=== PATIENT | female | born 1990 | race Caucasian/White ===

== ENCOUNTER → 2021-05-31 10:56 | Outpatient (BNVA) | payer OTHER, SELFPAY | PROVIDERS: PCP Internal Medicine; Visit Provider Psychiatry & Neurology Neurology | DX: G44.329 Chronic post-traumatic headache, not intractable (principal); G47.9 Sleep disorder, unspecified; M54.2 Cervicalgia | CPT/HCPCS: 99202 ==

== ENCOUNTER → 2021-07-10 10:16 | Outpatient (BNVA) | payer OTHER, SELFPAY | PROVIDERS: PCP Internal Medicine; Visit Provider Nurse Practitioner Family | DX: G44.329 Chronic post-traumatic headache, not intractable (principal); G47.9 Sleep disorder, unspecified; G93.0 Cerebral cysts; M54.2 Cervicalgia | CPT/HCPCS: 99212 ==

== ENCOUNTER → 2021-09-13 10:02 | Outpatient (BNVA) | payer OTHER, SELFPAY | PROVIDERS: PCP Internal Medicine; Visit Provider Nurse Practitioner Family | DX: G47.9 Sleep disorder, unspecified (principal); G93.0 Cerebral cysts; G44.329 Chronic post-traumatic headache, not intractable; M54.2 Cervicalgia | CPT/HCPCS: 99212 ==

== ENCOUNTER → 2022-01-03 09:52 | Outpatient (BNVA) | payer OTHER, SELFPAY | PROVIDERS: PCP Internal Medicine; Visit Provider Nurse Practitioner Family | DX: S06.0XAD Concussion with loss of consciousness status unknown, subsequent encounter (principal); G93.0 Cerebral cysts; F41.9 Anxiety disorder, unspecified; M79.7 Fibromyalgia; G47.9 Sleep disorder, unspecified; G44.329 Chronic post-traumatic headache, not intractable; M54.2 Cervicalgia | CPT/HCPCS: 99212 ==

== ENCOUNTER 2022-02-15 10:47 | Outpatient (REF) | payer OTHER, SELFPAY ==
--- NOTE | ~2022-02-15 | CT_ITS ---
EXAMINATION: CT HEAD WITHOUT CONTRAST CLINICAL INFORMATION: Concussion with loss of consciousness. COMPARISON: None TECHNIQUE: Contiguous axial imaging was performed from the skull base to vertex without intravenous administration of contrast. This CT examination was performed using dose optimization techniques as appropriate, variously including the following: *Automated exposure control *Adjustment of mA and/or kV according to patient size (this includes techniques or standardized protocols for targeted exams where dose is matched to indication/reason for exam; i.e. extremities or head) *Use of iterative reconstruction technique DLP: 649 mGy-cm FINDINGS: There is no acute intra-axial, extra-axial bleed, mass or midline shift. There is no acute infarction in evolution. The lateral ventricles are symmetrical in size and configuration without enlargement. The garcia to white matter differentiation is maintained normal. Bone windows reveal no calvarial abnormality. There is no scalp soft tissue abnormality. Bilateral paranasal sinuses and mastoid air cells are well aerated. CT/CT head/brain wo IV con IMPRESSION: No acute intracranial process is seen.
== END 2022-02-15 10:48 | disposition home or self-care (01) ==
LOC: HO.CT 10:47
PROVIDERS: PCP Internal Medicine; Visit Provider Nurse Practitioner Family
DX: G93.0 Cerebral cysts (principal); S06.0XAA Concussion with loss of consciousness status unknown, initial encounter
CPT/HCPCS: 70450

== ENCOUNTER → 2022-03-16 10:59 | Outpatient (BNVA) | payer OTHER, SELFPAY | PROVIDERS: PCP Internal Medicine; Visit Provider Nurse Practitioner Family | DX: G47.9 Sleep disorder, unspecified (principal); G44.329 Chronic post-traumatic headache, not intractable | CPT/HCPCS: 99212 ==

== ENCOUNTER → 2022-07-19 10:57 | Outpatient (BNVA) | payer OTHER, SELFPAY | PROVIDERS: PCP Internal Medicine; Visit Provider Nurse Practitioner Family | DX: S06.0X0A Concussion without loss of consciousness, initial encounter (principal); G44.329 Chronic post-traumatic headache, not intractable; G93.0 Cerebral cysts; G47.9 Sleep disorder, unspecified; M54.2 Cervicalgia; R40.0 Somnolence; R42 Dizziness and giddiness; Z79.899 Other long term (current) drug therapy | CPT/HCPCS: 99212 ==

== ENCOUNTER → 2022-09-18 09:04 | Outpatient (REF) | payer OTHER, SELFPAY | LOC: HO.SL 09:04 | PROVIDERS: PCP Internal Medicine; Visit Provider Nurse Practitioner Family | DX: G47.9 Sleep disorder, unspecified (principal); R40.0 Somnolence; R06.83 Snoring | CPT/HCPCS: 95806 ==

== ENCOUNTER → 2022-09-18 09:32 | Outpatient (BNV) | payer OTHER, SELFPAY | PROVIDERS: PCP Internal Medicine; Visit Provider Psychiatry & Neurology Neurology | DX: R06.83 Snoring (principal) | CPT/HCPCS: 95806 ==

== ENCOUNTER 2022-09-19 20:47 | Emergency (ER) | payer OTHER, SELFPAY ==
--- NOTE | ~2022-09-19 | XR_ITS ---
EXAMINATION: XR ANKLE, LEFT CLINICAL INFORMATION: Pain COMPARISON: None available. TECHNIQUE: AP, lateral, and mortise views of the left ankle. FINDINGS: Osseous alignment is anatomic. No acute fracture is seen. Small chronic appearing calcification is noted adjacent to the anterior talus on the lateral view. There is soft tissue swelling which is most significant laterally. XR/XR ankle LT 2V IMPRESSION: No acute fracture identified. Soft tissue swelling.
[2022-09-19 20:52] VITALS: BP 131/74; PULSE 101; RESP 18; TEMP 36.5; O2SAT 100; BMI 25.6
[2022-09-20] MEDS: Acetaminophen 325 MG TABLET 975 MG PO (00:53)
--- NOTE | 2022-09-20 01:09 | ED_ITS ---
HPI - General Adult General Chief complaint: Extremity Problem Stated complaint: L ankle/ foot pain. cant feel foot Time Seen by Provider: 09/20/22 00:24 Source: patient, RN notes reviewed and old records reviewed Mode of arrival: ambulatory Limitations: no limitations History of Present Illness HPI narrative: 32-year-old female presents for evaluation of left ankle pain Patient reports that she woke up with left ankle pain 3 days ago Denies any injury to the area The pain was initially mild and did not radiate Now the pain radiates to her foot and upper left leg Denies any fevers or chills Denies any history of diabetes Denies any history of gout She drinks approximately 2 beers daily but notes that she does not necessarily drink every day Related Data Home Medications Medication Instructions Recorded Confirmed acetaminophen 500 mg-pamabrom 25 1 tab PO Q12H PRN 05/31/21 09/13/21 mg-pyrilamine 15 mg tablet cyclobenzaprine 10 mg tablet 10 mg PO Q8H PRN muscle spasm 05/31/21 09/13/21 naproxen 500 mg tablet 500 mg PO BID PRN pain 05/31/21 09/13/21 medroxyprogesterone 150 mg/mL 150 mg IM [id number] 07/19/22 intramuscular suspension Previous Rx's Medication Instructions Recorded amitriptyline 25 mg tablet 25 mg PO BEDTIME 30 days #30 tabs 07/19/22 magnesium oxide 400 mg PO DAILY 30 days #30 tabs 07/19/22 riboflavin (vitamin B2) 400 mg 400 mg PO DAILY 30 days #30 tabs 07/19/22 tablet colchicine 0.6 mg tablet 0.6 mg PO DAILY #7 tabs 09/20/22 doxycycline hyclate 100 mg tablet 100 mg PO BID #14 tabs 09/20/22 prednisone 20 mg tablet 40 mg PO DAILY #10 tabs 09/20/22 Allergies Allergy/AdvReac Type Severity Reaction Status Date / Time Penicillins [PENICILLINS] Allergy Unknown ANAPHYLAXIS Verified 07/19/22 11:08 Review of Systems Constitutional: Constitutional: Denies chills and Denies fever(s) Musculoskeletal: Musculoskeletal: Reports arthralgias, Reports joint swelling and Reports limited range of motion Integumentary/Breasts: Skin/Breast: Reports erythema PMFSH Past Medical History Medical History Anxiety Arachnoid cyst Cervicalgia Concussion Fibromyalgia Surgical History History of placement of ear tubes Hx of ovarian cystectomy Family History Family History Father Hypertension Brother Epilepsy Paternal Grandfather Hypertension Cancer Social History Social History Alcohol intake: never Patient Tobacco Use Status: Current everyday Tobacco user Cigarette Packs Per Day: 0.5 Smoked in Last 30 Days: No Use of substances other than those prescribed or required for medical reasons: No Substance Use Type: Marijuana Advance Directives: No Advance Directives Information Provided: Yes Current occupational status: unemployed Physical Exam ED Vital Signs: Vital Signs - 24 hr 09/19/22 20:52 Temperature 97.7 F Pulse Rate 101 H Respiratory Rate 18 Blood Pressure 131/74 Pulse Oximetry 100 Oxygen Delivery Method Room Air BMI result Body Mass Index 25.6 Const General: healthy appearing, comfortable, no acute distress, alert and awake Nutritional Appearance: well nourished Orientation/consciousness: patient oriented x3 HENMT Head: Yes normocephalic and Yes atraumatic Eyes Eyelids: Yes eyelids normal Conjunctivae: conjunctivae normal Sclerae: sclerae normal Corneas: corneas normal Pupils: Equal, round and reactive pupils present EOM: EOMs intact bilaterally Neck Neck: Yes full ROM Resp Effort & Inspection: normal respiratory effort, able to speak in complete sent ences and not labored Cardio Rate: regular rate Rhythm: regular rhythm Skin General skin exam: no rashes or lesions noted Neuro General: patient oriented x3 Cranial nerves: Yes Equal, round and reactive pupils present and Yes Bilaterally intact EOM present Cognition (Neuro): normal cognition Extrem Other: Patient has a small area of erythema to the left lateral ankle overlying the lateral malleolus. The area is mildly edematous and tender to palpation. No open wounds, abrasions or scratches. No left calf tenderness. Distal sensation and capillary refill intact Course Reevaluation(s) Reevaluation #1: Difficult to determine whether patient has cellulitis versus gout. I failure symptom most likely triggered to gout. I discussed with her that we will treat with prednisone and colchicine. I will also prescribe her cephalexin/her symptoms do not improve within 2 days she may start taking the antibiotic. If she develops a fever or worsening symptoms she may take the antibiotics under Time: 01:52 Medications Administered Discontinued Medications Generic Name Dose Route Start Last Admin Trade Name Drea PRN Reason Stop Dose Admin Acetaminophen 975 mg 09/20/22 00:40 09/20/22 00:53 Acetaminophen 325 Mg Tablet PO 09/20/22 00:41 975 mg ONCE ONE Administration Medical Decision Making Medical Decision Making [facility] Narrative: 32-year-old female has atraumatic left ankle redness, swelling and pain. Symptoms are consistent with gout versus cellulitis. Given the sensitivity to very light touch and the fact the patient drinks alcohol regularly, I feel that gout is much more likely. She has no fever. No open wounds to be a source of cellulitis. Will check basic labs, inflammatory markers and an x-ray. Differential Diagnosis Gouty arthritis Cellulitis Abscess Ankle sprain Contusion Lab Data [facility] Lab Attestation statement: I reviewed the patient's lab results. (Patient has a slight leukocytosis of 12.2 hemoglobin normal at 13.0 and hematocrit of 38.7, mild elevation CRP 2.02.) 09/20/22 01:09 09/20/22 01:09 Labs: Lab Results 09/20/22 09/20/22 Range/Units 01:09 01:09 WBC 12.2 H (4.8-10.8) X10*3/uL RBC 4.55 (4.20-5.50) X10*6/uL Hgb 13.0 (12.0-16.0) g/dl Hct 38.7 (37.0-47.0) % MCV 85.1 (80.0-98.0) fL MCH 28.6 (27.0-33.0) pg MCHC 33.6 (31.0-35.0) g/dl RDW 12.5 (11.0-16.0) % Plt Count 243 (160-400) X10*3/uL MPV 10.8 (9.4-12.3) fL Immature Gran % (Auto) 0.3 (0.0-0.4) % Neut % (Auto) 76.5 H (45-73) % Lymph % (Auto) 15.0 L (20-40) % [place] % (Auto) 5.4 (2-11) % Eos % (Auto) 2.3 (0-4) % Baso % (Auto) 0.5 (0-2) % Lymph # (Auto) 1.8 (1.2-4.9) X10*3/uL [place] # (Auto) 0.7 (0.1-1.2) X10*3/uL Eos # (Auto) 0.3 (0.0-0.4) X10*3/uL Baso # (Auto) 0.1 (0.0-0.2) X10*3/uL Abs Immat Gran (auto) 0.04 H (0.00-0.03) X10*3/uL Absolute Neuts (auto) 9.3 H (2.0-8.3) x10*3/uL Absolute Nucleated RBC 0.000 (0.0-0.012) X10*3/uL Nucleated RBC % (auto) 0.0 (0.0-0.2) /100WBC Sodium 137 (135-145) mmol/L Potassium 3.9 (3.3-5.1) mmol/L Chloride 105 (96-108) mmol/L Carbon Dioxide 22 (22-29) mmol/L Anion Gap 14 (12-20) BUN 8 L (9-16) mg/dL Creatinine 0.82 (0.5-1.4) mg/dL Estim Creat Clear Calc 94.8 Estimated GFR > 60 Random Glucose 103 (60-115) mg/dL Calcium 9.3 (8.4-10.2) mg/dL Total Bilirubin 0.5 (0.0-1.0) mg/dL AST 17 (5-31) U/L ALT 8 (0-31) U/L Alkaline Phosphatase 100 (39-117) U/L C-Reactive Protein 2.02 H (< or = 0.50) mg/dL Total Protein 7.1 (6.5-8.0) g/dL Albumin 4.0 (3.5-5.0) g/dL Lipase 15 (8-78) U/L Independent Interpretation I performed an independent interpretation of an: Plain X-Ray (You no obvious fracture of the left ankle) Discharge Plan Discharge Clinical Impression: Ankle pain, left Patient Disposition: Home, Self-Care Instructions: Gout (ED) Additional Instructions: Your left ankle pain and redness is most likely related to gout. You should avoid foods and beverages that trigger gout which should be in your discharge paperwork. Take prednisone and colchicine as directed For symptoms do not improve within the next 48 hours or if he began to develop fevers or worsening redness, start taking the doxycycline as prescribed I feel that infection is less likely the cause of your symptoms which is why I recommend you hold off on the antibiotics for now Prescriptions: New prednisone 20 mg tablet 40 mg PO DAILY Qty: 10 0RF colchicine 0.6 mg tablet 0.6 mg PO DAILY Qty: 7 0RF doxycycline hyclate 100 mg tablet 100 mg PO BID Qty: 14 0RF No Action medroxyprogesterone 150 mg/mL suspension 150 mg IM [id number] riboflavin (vitamin B2) 400 mg tablet 400 mg PO DAILY 30 Days Qty: 30 2RF magnesium oxide 400 mg magnesium tablet 400 mg PO DAILY 30 Days Qty: 30 6RF amitriptyline 25 mg tablet 25 mg PO BEDTIME 30 Days Qty: 30 4RF naproxen 500 mg tablet 500 mg PO BID PRN (Reason: pain) cyclobenzaprine 10 mg tablet 10 mg PO Q8H PRN (Reason: muscle spasm) [id number] 500-25-15 mg tablet 1 tab PO Q12H PRN
[2022-09-20 01:12] LABS: MANUAL DIFF FLAG NO
[2022-09-20 01:15] LABS: Basophils Absolute Auto 0.1 X10*3/uL (0.0-0.2); Basophils Percent Auto 0.5 % (0-2); Eosinophils Absolute Auto 0.3 X10*3/uL (0.0-0.4); Eosinophils Percent Auto 2.3 % (0-4); Hematocrit 38.7 % (37.0-47.0); Imm Gran Abs Auto 0.04 X10*3/uL (0.00-0.03); Imm Gran Pct Auto 0.3 % (0.0-0.4); Lymphocytes Absolute Auto 1.8 X10*3/uL (1.2-4.9); Mean Corpuscular HGB Conc 33.6 g/dl (31.0-35.0); Mean Corpuscular Hemoglobin 28.6 pg (27.0-33.0); Mean Corpuscular Volume 85.1 fL (80.0-98.0); Mean Platelet Volume 10.8 fL (9.4-12.3); Monocytes Absolute Auto 0.7 X10*3/uL (0.1-1.2); Monocytes Percent Auto 5.4 % (2-11); Neutrophils Absolute Auto 9.3 x10*3/uL (2.0-8.3); Neutrophils Percent Auto 76.5 % (45-73); Platelet Count 243 X10*3/uL (160-400); Red Blood Count 4.55 X10*6/uL (4.20-5.50); Red Cell Distribution Width 12.5 % (11.0-16.0); White Blood Count 12.2 X10*3/uL (4.8-10.8)
--- NOTE | 2022-09-20 01:17 | PC.NURSE ---
patient in bed with eyes open patient showing no signs of distress at this time patient is waiting to be seen by the doctor safety will be maintained
--- NOTE | 2022-09-20 01:20 | PC.NURSE ---
patient will be receiving some crutches and training patient is still waiting to be monitored for safety for further orders
[2022-09-20 01:27] LABS: Anion Gap 14 (12-20)
[2022-09-20 01:33] LABS: Alanine Aminotransferase 8 U/L (0-31); Alkaline Phosphatase 100 U/L (39-117); Aspartate Amino Transferase 17 U/L (5-31); Bilirubin Total 0.5 mg/dL (0.0-1.0); Blood Urea Nitrogen 8 mg/dL (9-16); C Reactive Protein 2.02 mg/dL (< or = 0.50); Calcium 9.3 mg/dL (8.4-10.2); Carbon Dioxide 22 mmol/L (22-29); Chloride 105 mmol/L (96-108); Glucose Random 103 mg/dL (60-115); Lipase 15 U/L (8-78); Potassium 3.9 mmol/L (3.3-5.1); Sodium 137 mmol/L (135-145); Total Protein 7.1 g/dL (6.5-8.0)
[2022-09-20 01:44] LABS: Creatinine Clr Calc Pharmacy 94.8; Estimated Glomerular Filt Rate > 60
[2022-09-20 02:48] LABS: Erythrocyte Sedimentation Rate 14 MM/HR (0-20)
== END 2022-09-20 02:03 | disposition home or self-care (01) ==
PROVIDERS: Physician Assistant; Emergency Provider Emergency Medicine; PCP Internal Medicine
DX: M25.572 Pain in left ankle and joints of left foot (principal); F17.210 Nicotine dependence, cigarettes, uncomplicated; F12.20 Cannabis dependence, uncomplicated
CPT/HCPCS: 36415; 73600; 80053; 83690; 85025; 85652; 86140; 99283; 99284

== ENCOUNTER 2022-11-19 10:53 | Outpatient (AMB) | payer OTHER, SELFPAY ==
--- NOTE | 2022-11-19 10:58 | MHC.OFFVIS ---
Intake Vital Signs 11/19/22 11:02 Weight 151 lb 6 oz BP 120/78 Blood Pressure Location Rt brachial Position Sitting Pulse 82 Pulse Source Pulse Oximeter Pulse Oximetry (%) 98 Oxygen Delivery Method Room Air Intake Visit Reasons: 4 mnts f/u appt- Confirmed Intake Note: F/U sleep disorder Telephony Engineer Required: No Allergies Penicillins [PENICILLINS] Allergy (Unknown, Verified 11/19/22 10:59) ANAPHYLAXIS HPI HPI Comments History of Present Illness Details 32 y/o female patient presents for follow up of chronic post concussion syndrome, sleep disorder and cervicalgia. Pt reports overall headache has been better, still having mild headache, but much it lasts less and more manageable. Cold compression, laying down, and rest in the darkroom mostly helpful to relieved the headache. She has been taking allergy medication lately and it helps to reduced headache. She stopped smoking before bed time and it helps her sleep better. Pt reports ankle swelling, and ultrasound scheduled this week and vascular specialist next months. Pt can sleep 5-6 hours straight with amitriptyline 25 mg but wakes up groggy and want to decrease to 10 mg. The home sleep study result was normal sleep study, AHI was less than 1/hr and oxygen sandhya was 91%. She states that she cut down smoking, but still 5 cigarettes a day. She also smokes marijuana 2-3 times a week. [facility] Medical History Anxiety Arachnoid cyst Concussion Fibromyalgia Cervicalgia Surgical History Hx of ovarian cystectomy History of placement of ear tubes Family History Father Hypertension Brother Epilepsy Paternal Grandfather Hypertension Cancer Social History Alcohol intake: never Patient Tobacco Use Status: Current everyday Tobacco user Cigarette Packs Per Day: 0.5 Substance Use Type: Marijuana Current occupational status: unemployed Review of Systems Const All systems reviewed & are unremarkable except as noted in HPI and below Physical Exam Vital Signs: Last Vital Signs Pulse 82 11/19/22 11:02 BP 120/78 11/19/22 11:02 Pulse Ox 98 09/18/23 11:02 Oxygen Delivery Method Room Air 11/19/22 11:02 Const General: cooperative and no acute distress Nutritional Appearance: average body habitus Orientation/consciousness: patient oriented x3 Limitations: no limitations HEENT Head: Yes normocephalic Neck Other: Trapezius muscle tightness. Neck: Yes full ROM and Yes supple Resp Effort & Inspection: normal respiratory effort and able to speak in complete sentences Neuro General: patient oriented x3 Cranial nerves: Yes CN's II-XII intact bilaterally Cognition (Neuro): normal cognition Gait exam (Neuro): Normal gait present Motor exam (neuro): 5/5 motor strength present throughout Psych Appearance: grossly normal Mental Status: mental status grossly normal Speech and movement: Normal speech and movement present Affect: normal affect Attitude: cooperative Assessment & Plan Assessment & Plan (1) Concussion: Comment: Recent concussion. without loss of consciousness. Code(s): S06.0XAA - Concussion with loss of consciousness status unknown, initial encounter (2) Arachnoid cyst: Code(s): G93.0 - Cerebral cysts (3) Sleep disorder: Code(s): G47.9 - Sleep disorder, unspecified (4) Chronic post-concussion headache: Code(s): G44.329 - Chronic post-traumatic headache, not intractable (5) Cervicalgia: Code(s): M54.2 - Cervicalgia Plan Decreased amitriptyline to 10mg qHS with magnesium 400 mg for headache prevention, fibromyalgia and promote sleep. Continue vitamin B2 400 mg q daily to prevent headache. Use cyclobenzaprine 10 mg as needed for neck pain. Continue to do home PT exercise. Encouraged patient to reduce smoking. Medications: New amitriptyline 10 mg PO BEDTIME 30 tabs 3RF 30 days Discontinued amitriptyline Discontinued Reason: Doctor's Order 25 mg PO BEDTIME 30 days 30 tabs 4RF Coding Level of Care Code Est Pt Level 4 (30354) Diagnoses Concussion S06.0XAA Arachnoid cyst G93.0 Sleep disorder G47.9 Chronic post-concussion headache G44.329 Cervicalgia M54.2
[2022-11-19 11:02] VITALS: BP 120/78; PULSE 82; O2SAT 98
== END 2022-11-19 11:20 | disposition home or self-care (01) ==
PROVIDERS: Visit Provider Nurse Practitioner Family
DX: S06.0XAA Concussion with loss of consciousness status unknown, initial encounter (principal); G93.0 Cerebral cysts; G47.9 Sleep disorder, unspecified; G44.329 Chronic post-traumatic headache, not intractable; M54.2 Cervicalgia
CPT/HCPCS: 99214

== ENCOUNTER → 2022-11-19 10:53 | Outpatient (BNVA) | payer OTHER, SELFPAY | PROVIDERS: Visit Provider Nurse Practitioner Family | DX: S06.0XAD Concussion with loss of consciousness status unknown, subsequent encounter (principal); G44.329 Chronic post-traumatic headache, not intractable; G93.0 Cerebral cysts; M54.2 Cervicalgia; G47.9 Sleep disorder, unspecified | CPT/HCPCS: 99212 ==

== ENCOUNTER → 2023-05-20 10:59 | Outpatient (BNVA) | payer OTHER, SELFPAY | PROVIDERS: PCP Internal Medicine; Visit Provider Nurse Practitioner Family | DX: G47.9 Sleep disorder, unspecified (principal); R40.0 Somnolence; R42 Dizziness and giddiness ==

== ENCOUNTER 2023-05-20 11:01 | Outpatient (AMB) | payer OTHER, SELFPAY ==
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
[2023-05-20 11:16] VITALS: BP 122/80; PULSE 73; O2SAT 98; BMI 24.5
== END 2023-05-20 11:43 | disposition home or self-care (01) ==
PROVIDERS: PCP Internal Medicine; Visit Provider Nurse Practitioner Family
DX: S06.0XAA Concussion with loss of consciousness status unknown, initial encounter (principal); G93.0 Cerebral cysts; G47.9 Sleep disorder, unspecified; G44.329 Chronic post-traumatic headache, not intractable; M54.2 Cervicalgia
CPT/HCPCS: 99214

== ENCOUNTER 2024-10-07 10:31 | Outpatient (REF) | payer OTHER, SELFPAY ==
[2024-10-07 13:57] LABS: MANUAL DIFF FLAG NO
[2024-10-07 14:07] LABS: Hematocrit 42.7 % (37.0-47.0); Hemoglobin 14.5 g/dl (12.0-16.0); Imm Gran Abs Auto 0.04 X10*3/uL (0.00-0.03); Imm Gran Pct Auto 0.4 % (0.0-0.4); Lymphocytes Absolute Auto 1.5 X10*3/uL (1.2-4.9); Mean Corpuscular HGB Conc 34.0 g/dl (31.0-35.0); Mean Corpuscular Hemoglobin 30.3 pg (27.0-33.0); Mean Corpuscular Volume 89.1 fL (80.0-98.0); NRBC Abs Auto 0.000 X10*3/uL (0.0-0.012); NRBC Pct Auto 0.0 /100WBC (0.0-0.2); Platelet Count 194 X10*3/uL (160-400); Red Blood Count 4.79 X10*6/uL (4.20-5.50); White Blood Count 9.5 X10*3/uL (4.8-10.8)
[2024-10-07 18:53] LABS: Alanine Aminotransferase 10 U/L (0-31); Albumin Level 4.6 g/dL (3.5-5.0); Alkaline Phosphatase 71 U/L (39-117); Anion Gap 12 (12-20); Aspartate Amino Transferase 28 U/L (5-31); Blood Urea Nitrogen 10 mg/dL (9-16); Calcium 9.2 mg/dL (8.4-10.2); Carbon Dioxide 27 mmol/L (22-29); Chloride 104 mmol/L (96-108); Estimated Glomerular Filt Rate > 60; Iron 152 mcg/dL (30-160); Percent Iron Saturation 48 % (15-50); Potassium 4.1 mmol/L (3.3-5.1); Sodium 139 mmol/L (135-145); Total Iron Binding Capacity 320 mcg/dL (228-428); Total Protein 7.1 g/dL (6.5-8.0); Unsaturated Iron Binding 168 ug/dL
[2024-10-07 19:08] LABS: Ferritin 113 ng/mL (10-122)
[2024-10-07 19:18] LABS: Folate 4.2 ng/mL (> or = 4.0); Vitamin B12 364 pg/mL (200-900)
[2024-10-10 12:02] LABS: Anti Nuclear Antibody Screen NEGATIVE (NEGATIVE)
[2024-10-11 11:43] LABS: Vitamin D 25-OH, D2 <4 ng/mL; Vitamin D 25-OH, D3 39 ng/mL; Vitamin D 25-OH, Total 39 ng/mL (30-100)
== END 2024-10-07 10:32 | disposition home or self-care (01) ==
LOC: HO.HKASLDS 10:31
PROVIDERS: PCP Internal Medicine; Visit Provider Nurse Practitioner Family
DX: F07.81 Postconcussional syndrome (principal); G43.909 Migraine, unspecified, not intractable, without status migrainosus; R68.89 Other general symptoms and signs; R79.82 Elevated C-reactive protein (CRP); F41.9 Anxiety disorder, unspecified; D64.9 Anemia, unspecified; R53.83 Other fatigue; E55.9 Vitamin D deficiency, unspecified; F09 Unspecified mental disorder due to known physiological condition; H53.149 Visual discomfort, unspecified; Z79.899 Other long term (current) drug therapy
CPT/HCPCS: 36415; 80053; 82306; 82607; 82728; 82746; 83540; 84443; 85025; 85652; 86038; 86140; 86431; 99212

== ENCOUNTER 2024-10-07 10:31 | Outpatient (AMB) | payer OTHER, SELFPAY ==
[2024-10-07 10:36] VITALS: BP 108/78; PULSE 102; O2SAT 98; BMI 24.7
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
--- OUTSIDE RECORDS SUMMARY | 2024-10-07 11:12 | XMS_ITS ---
Author Name [facility] Organization Unknown Care Team Organization Name Specialty Phone Email Start Date End [facility] Vimal Alba Primary Care 01/09/2022 10/21/19 24
== END 2024-10-07 11:29 | disposition home or self-care (01) ==
LOC: HO.HSMS 10:31
PROVIDERS: PCP Internal Medicine; Visit Provider Nurse Practitioner Family
DX: R68.89 Other general symptoms and signs (principal); F07.81 Postconcussional syndrome; F09 Unspecified mental disorder due to known physiological condition
CPT/HCPCS: 99214

== ENCOUNTER 2025-02-03 08:11 | Outpatient (RCR) | payer OTHER, SELFPAY ==
--- NOTE | 2024-12-15 14:33 | MHC.OT.EP ---
[facility] Office [address] [phone] F: [phone] F: [phone] Occupational Therapy Plan of Care Patient Name: Kathya Steve Date of Evaluation: 12/15/24 Diagnosis: Post-concussion syndrome Pain Location: Headaches at baseline; bilateral headache w/ photophobia Migraines several times a week originating in the back of the head radiating to temples +brain fog, activity intolerance Aggravating Factors: Loud noises, bright lights, stress, over-stimulation Alleviating Factors: Medication, ice, migraine wrap Assessment: Kathya is a 34 y/o female referred to OT w/ post concussion syndrome with migraine (which was exacerbated by concussion in 2020 and again in 2023). She continues to experience photophobia/phonophobia, poor short term memory, and poor organizational skills. She loses track of what she is doing, and reports increased cognitive fatigue. [facility] PCS Questionnaire was administered today and pt reproted the following as severe problem areas impacting function: headaches, fatigue, poor memory, poor concentration, and decreased processing speed. She did score 30/30 on the MOCA, indicating normal cognition, though pt notes she is heavily relying on notes, timers, reminders, etc to function. Pt would benefit from short term skilled OT to improve organizational skills and address noted barriers. Frequency and Duration: The patient will be seen 1x/wk for 6 weeks Short Term Goals: IND with knowledge of MARTIN triggers and reduction strategies Trial EFT and breathing techniques for stress management Independently create and follow a daily/weekly schedule incorporating parenting responsibilities, CHIEF DIETITIAN duties, and self-care activities using a calendar system [facility] Goals: Decrease headache frequency/intensity by 50% IND with stress management techniques to reduce overwhelm Pt will complete alternating attention tasks with >90% accuracy and with no increase in concussion symptoms. Treatment Plan: Other (see comments) Cognitive therapy, sleep hygiene, nervous system regulation, headache management Electronically Signed By: Aerli Nayak MS OTR/L Please Sign and return to therapist. Thank you once again for your referral.
--- NOTE | 2025-02-04 08:00 | MHC.OT.DC ---
[facility] Office [address] [phone] F: [phone] F: [phone] Occupational Therapy Discharge Note Patient Name: Kathya Steve Provider: Tracy Barroso Diagnosis: Post-concussion syndrome Date of Evaluation: 12/15/24 Date of Discharge: 02/03/25 Treatments to Date: 5 Discharge Status: Achieved Goals Improved Function Independent with HEP Discharge Summary: Kathya has progressed very well in OT and met all LTG's set on admission. Pt demonstrates independence with learned cognitive strategies and is successfully managing work tasks and activities of daily living. P verbalizes understanding of home exercise program and compensatory techniques for ongoing symptom management. She in agreement with discharge to independent home program at this time. Patient encouraged to gradually increase cognitive demands as tolerated while monitoring for symptom exacerbation. She also demonstrated a 5 point reduction on the [place] with pt. self rating improvements in headache frequency/intensity, fatigue, mood, memory and concentration. Thank you for this referral! Electronically Signed By: Areli Nayak, MS OTR/L Reviewed/agree with student documentation: Therapist: Please Sign and return to therapist, thank you for your referral.
== END 2025-02-04 08:01 | disposition home or self-care (01) ==
LOC: HO.OTS 08:11
PROVIDERS: Visit Provider Nurse Practitioner Family
DX: F07.81 Postconcussional syndrome (principal); F09 Unspecified mental disorder due to known physiological condition; R68.89 Other general symptoms and signs
CPT/HCPCS: 97165; 97530